=== PATIENT | male | born 1950 | race Caucasian/White ===

== ENCOUNTER 2017-09-02 09:14 | Emergency (ER) | payer OTHER ==
[~2017-09-02 09:14] MED LIST: ASPI81TA28 PO; ATOR-26 PO; CRD2 PO; EZET10TA47 PO; LSN25 PO; METO1TAB66 PO; METR0.754 TOP; OXYC-57 PO; VITATAB11 PO
[2017-09-02 09:18] VITALS: TEMP 36.6; Ht 172.7 cm
[2017-09-02] MEDS ORDERED: ROSU40TA PO (09:39)
[2017-09-02] MEDS ORDERED: LISI-789 PO (09:39)
[2017-09-02] MEDS ORDERED: DOXA-22 PO (09:39)
--- NOTE | 2017-09-02 10:24 | DIAGNOSTIC IMAGING REPORT ---
R KNEE 3 VIEWS, R TIBIA/FIBULA 2 VIEWS ROUTINE HISTORY: 67 years-old Male r knee/calf pain acute right knee pain with recent fall COMPARISON: None available TECHNIQUE: 3 views of the right knee and 2 views of the right tibia and fibula FINDINGS: KNEE: Tricompartmental osteoarthritis is noted, mild within the medial and lateral compartments and moderate within the patellofemoral compartment. There is spurring of the superior patella. No acute fracture or dislocation identified. Chondrocalcinosis. Vascular calcifications are noted. Small joint effusion. TIBIA/FIBULA: No acute fracture or dislocation. Mild degenerative changes about the tibiotalar joint. IMPRESSION: 1. Small joint effusion without acute fracture or dislocation of the right knee, tibia or fibula. 2. Chondrocalcinosis with tricompartmental osteoarthritis, moderate within the patellofemoral joint. 3. Peripheral vascular disease. The above report was generated using voice recognition software. It may contain grammatical, syntax or spelling errors. Electronically signed by: Arthur Mohr M.D. 09/02/2017 10:22 AM Dictated Date/Time: 09/02/2017 10:17 AM
--- NOTE | 2017-09-02 10:27 | DIAGNOSTIC IMAGING REPORT ---
ULTRASOUND R VENOUS DOPP LOWER EXT UNILAT CLINICAL HISTORY: Right lower extremity swelling COMPARISON STUDY: No previous studies for comparison. FINDINGS: Real-time and color flow Doppler imaging were performed. Flow was seen within the femoral, popliteal and calf veins with no intraluminal thrombus demonstrated. The saphenous vein is patent. IMPRESSION: No evidence of right lower extremity DVT Electronically signed by: Romulo Rod M.D. 09/02/2017 10:26 AM Dictated Date/Time: 09/02/2017 10:25 AM
[2017-09-02] MEDS ORDERED: OXYC1TAB3 PO (10:54)
[2017-09-02 11:10] VITALS: BP 121/80; PULSE 70; O2SAT 96
--- NOTE | 2017-09-02 14:54 | EMERGENCY ROOM VISIT NOTE ---
History Report prepared by Eros: Logan Rashid Under the Supervision of: Dr. Jose Rosario D.O. First contact with patient: 09:22 Chief Complaint: LEG PAIN,LEG INJURY Stated Complaint: FELL ON RT LEG/LEG PAIN History of Present Illness The patient is a 67 year old male who presents to the Emergency Room with complaints of right leg pain that began yesterday. At this time, the patient was crossbow hunting in a tree stand for about 4 hours. He was trying to get down out of his tree stand when he tripped over a branch on the ground and fell onto his right knee. He notes that he heard a pop when he fell. He is also having right calf pain. This is causing him to have trouble ambulating. He did not hit his head or his neck. He denies any headache, neck pain, chest pain, shortness of breath, nausea, vomiting, diarrhea, numbness, or weakness, with exception of tingling to his right calf. Source of History: patient Onset: yesterday Position: knee (right) Symptom Intensity: moderate Quality: ache Timing: constant Modifying Factors (Worsening): movement Associated Symptoms: No LOC, No headache, No neck pain, No chest pain, No SOB, No nausea, No vomiting, No abdominal pain, No back pain, No diarrhea, No weakness, No numbness (with the exception of right calf) Review of Systems See HPI for pertinent positives & negatives. A total of 10 systems reviewed and were otherwise negative. Past Medical & Surgical Medical Problems: (1) High cholesterol (2) Hx of abdominal aortic aneurysm (3) Postop carotid endarterectomy surveillance, encounter for Family History No significant family history Social History Smoking Status: Former Smoker Alcohol Use: none Housing Status: lives with family Occupation Status: retired Current/Historical Medications Scheduled Aspirin (Aspirin Ec), 81 MG PO DAILY Doxazosin Mesylate (Doxazosin), 4 MG PO HS Ezetimibe (Zetia), 10 MG PO DAILY Lisinopril (Zestril), 2.5 MG PO BID Metoprolol Succinate (Toprol Xl), 50 MG PO DAILY Rosuvastatin Calcium (Crestor), 40 MG PO DAILY Scheduled PRN Oxycodone Immediate Rel Tab (Roxicodone Ir), 5 MG PO Q6H PRN for Pain Allergies Coded Allergies: Niacin (Verified Adverse Reaction, Mild, FLUSHED FACE, SPLOTCHY, 10/05/14) Physical Exam Vital Signs Date Time Temp Pulse Resp B/P (MAP) Pulse Ox O2 Delivery O2 Flow Rate FiO2 09/02/17 11:10 70 20 121/80 96 09/02/17 09:18 36.6 76 18 123/75 95 Room Air Physical Exam GENERAL: alert, well appearing, well nourished, no distress, non-toxic HEAD: NC/AT EYE EXAM: normal conjunctiva, PERRL and EOM's grossly intact OROPHARYNX: no exudate, no erythema, lips, buccal mucosa, and tongue normal and mucous membranes are moist NECK: supple, no nuchal rigidity, no adenopathy, non-tender LUNGS: Clear to auscultation. Normal chest wall mechanics HEART: no murmurs, S1 normal and S2 normal ABDOMEN: abdomen soft, non-tender, normo-active bowel sounds, no masses, no rebound or guarding. BACK: Back is symmetrical on inspection and there is no deformity, no midline tenderness, no CVA tenderness. SKIN: no rashes and no bruising UPPER EXTREMITIES: upper extremities are grossly normal. LOWER EXTREMITIES: Right calf larger than left. Flexion and extension to the hip , knee, ankle and EHL intact. Gross sensation intact. DP is 2/4. Tenderness on palpation to the right posterior knee/calf. Skin intact. NEURO EXAM: Normal sensorium Medical Decision & Procedures ER Provider Diagnostic Interpretation: Radiology results as stated below per my review and the radiologist's interpretation: R KNEE 3 VIEWS, R TIBIA/FIBULA 2 VIEWS ROUTINE HISTORY: 67 years-old Male r knee/calf pain acute right knee pain with recent fall COMPARISON: None available TECHNIQUE: 3 views of the right knee and 2 views of the right tibia and fibula FINDINGS: KNEE: Tricompartmental osteoarthritis is noted, mild within the medial and lateral compartments and moderate within the patellofemoral compartment. There is spurring of the superior patella. No acute fracture or dislocation identified. Chondrocalcinosis. Vascular calcifications are noted. Small joint effusion. TIBIA/FIBULA: No acute fracture or dislocation. Mild degenerative changes about the tibiotalar joint. IMPRESSION: 1. Small joint effusion without acute fracture or dislocation of the right knee, tibia or fibula. 2. Chondrocalcinosis with tricompartmental osteoarthritis, moderate within the patellofemoral joint. 3. Peripheral vascular disease. The above report was generated using voice recognition software. It may contain grammatical, syntax or spelling errors. Electronically signed by: Arthur Mohr M.D. 09/02/2017 10:22 AM Dictated Date/Time: 09/02/2017 10:17 AM ULTRASOUND R VENOUS DOPP LOWER EXT UNILAT CLINICAL HISTORY: Right lower extremity swelling COMPARISON STUDY: No previous studies for comparison. FINDINGS: Real-time and color flow Doppler imaging were performed. Flow was seen within the femoral, popliteal and calf veins with no intraluminal thrombus demonstrated. The saphenous vein is patent. IMPRESSION: No evidence of right lower extremity DVT Electronically signed by: Romulo Rod M.D. 09/02/2017 10:26 AM Dictated Date/Time: 09/02/2017 10:25 AM ED Course ED COURSE: Vital signs were reviewed and showed hypertension. The patients medical record was reviewed The above diagnostic studies were performed and reviewed. ED treatments and interventions as stated above. 0922: The patient was evaluated in room B6. A complete history and physical examination was performed. 1110: Upon reevaluation, the patient is resting. I discussed my findings with the patient and he understands and agrees with the treatment plan. Based on the patients age, coexisting illnesses, exam and lab findings the decision to treat as an outpatient was made. The patient remained stable while under my care. The patient appeared well at the time of discharge. Medical Decision Differential diagnoses include major intracranial, cervical, spinal, thoracic, abdominal, pelvic and neurologic injury. Fracture, contusion, sprain, strain, laceration, abrasions included as well. Patient is a 67-year-old male who presents to the ER following feeling a pop in his right calf yesterday. Since then he has been having severe Pain. Does have a previous history of DVT. No blood thinners. X-rays of the patient were negative. Duplex shows no clot. Do favor he likely has a tear in his posterior calf musculature which is likely causing the fullness in his posterior upper calf. Achilles is intact. Patient was given crutches and instructed to refrain from weight bearing and follow-up with orthopedics. Discussed with Pt concerning signs and symptoms to watch out for. Pt was instructed to follow up with their PCP and discussed with the patient their option to return to the ED at anytime for persistent or worsening symptoms. The appropriate anticipatory guidance and out-patient management, including indications for return to the emergency department, were explained at length to the patient and understood. [place] Drug Monitoring Program Search Results: patient reviewed within database, no issues identified Medication Reconcilliation Current Medication List: was personally reviewed by me Blood Pressure Screening Patient's blood pressure: Elevated blood pressure Blood pressure disposition: Elevated BP felt to be situational Impression Primary Impression: Right calf pain Scribe Attestation The scribe's documentation has been prepared under my direction and personally reviewed by me in its entirety. I confirm that the note above accurately reflects all work, treatment, procedures, and medical decision making performed by me. Departure Information Dispostion Home / Self-Care Prescriptions Oxycodone Immediate Rel Tab (ROXICODONE IR) 5 Mg Tab 5 MG PO Q6H Y for Pain, #10 TAB Prov: Jose Rosario, DO 09/02/17 Referrals Azam Lozada M.D. Forms HOME CARE DOCUMENTATION FORM, IMPORTANT VISIT INFORMATION Patient Instructions My [facility], ED Knee Pain [facility] Additional Instructions Please follow up with your primary care doctor or if you are a student, [facility] with in the next 24 hours. Any worsening of your symptoms, please return to the ED immediately. This includes any fevers greater than 100.4, worsening pain, chest pain, shortness breath, persistent nausea, vomiting, unable to eat or drink, or any other concerning signs or symptoms from your standpoint. Please take Motrin or Tylenol as needed for pain. Please use crutches and follow-up with orthopedics as listed below within 3-5 days. You were also given a prescription for a narcotic. While taking this medication you should also not drive, operate machinery and or work within 12hrs of taking the medication.
== END 2017-09-02 11:10 | disposition home or self-care (01) ==
LOC: C.EDB 09:16
DX: M79.661 Pain in right lower leg (principal); Y93.89 Activity, other specified; W18.09XA Striking against other object with subsequent fall, initial encounter; E78.00 Pure hypercholesterolemia, unspecified; Z87.891 Personal history of nicotine dependence; Z79.82 Long term (current) use of aspirin; Z79.899 Other long term (current) drug therapy

== ENCOUNTER 2017-11-29 10:45 | Emergency (ER) | payer OTHER ==
[~2017-11-29] VITALS: Ht 172.7 cm; Wt 102.1 kg
[~2017-11-29 10:45] MED LIST changes: -ATOR-26 PO; -CRD2 PO; +DOXA4TAB5 PO; +LISI-789 PO; -LSN25 PO; +METO-452 PO; -METO1TAB66 PO; -METR0.754 TOP; -OXYC-57 PO; +OXYC1TAB3 PO; +ROSU40TA PO; -VITATAB11 PO
[2017-11-29 10:56] VITALS: TEMP 36.7; Ht 172.7 cm; Wt 102.1 kg
[2017-11-29] MEDS ORDERED: MAGIC1 PO (11:18)
[2017-11-29] MEDS ORDERED: MoRPHine SULFATE 4 MG/ML 1 ML CARP\\VIAL IV STA (11:29)
[2017-11-29] MEDS ORDERED: ONDANSETRON INJ 2 MG/ML 2 ML VIAL IV STA (11:29)
[2017-11-29] MEDS ORDERED: SODIUM CHLORIDE 0.9% 500ML 500 ML IV STA (11:29)
--- NOTE | 2017-11-29 11:34 | EMERGENCY ROOM VISIT NOTE ---
History Report prepared by Eros: Edgardo Bryant Under the Supervision of: Dr. Jamilah Arguello M.D. First contact with patient: 11:21 Chief Complaint: FLANK PAIN Stated Complaint: PAIN IN LEFT SIDE, History of Present Illness The patient is a 67 year old male with an abdominal aortic aneurysm and a history of a kidney stone who presents to the Emergency Room with complaints of intermittent left flank pain that started 3 weeks ago. He states that the pain is around the bottom of his rib cage. The patient says that he was dragging a deer 3 weeks ago before the pain came on, but did not fall during that event. He states he had a fall 3 weeks before the pain started. The patient notes that his blood pressure has been going up periodically, and per his , the patient usually has a fairly normal blood pressure. The patient denies any fevers, vomiting, rashes, lower extremity weakness, or hematuria. He notes that his bowel movements have been normal. Source of History: patient, spouse/significant other Onset: 3 weeks ago Position: other (left flank) Quality: other (pain) Timing: intermittent Associated Symptoms: No fevers, No vomiting, No urinary symptoms (hematuria) , No weakness (in lower extremities), No rash Note: Associated symptoms: Elevated blood pressure. Review of Systems See HPI for pertinent positives & negatives. A total of 10 systems reviewed and were otherwise negative. Past Medical & Surgical Medical Problems: (1) High cholesterol (2) Hx of abdominal aortic aneurysm (3) Postop carotid endarterectomy surveillance, encounter for Family History No significant family history Social History Smoking Status: Former Smoker Alcohol Use: none Housing Status: lives with family Occupation Status: retired Current/Historical Medications Scheduled Aspirin (Aspirin Ec), 81 MG PO DAILY Diphenhy/Alum/Mag/Sucralfa (Magic Swizzle - Diphenhy/Alum/Mag/Sucralfa), 15 ML PO BID Doxazosin Mesylate (Doxazosin), 4 MG PO HS Ezetimibe (Zetia), 10 MG PO DAILY Lisinopril (Zestril), 2.5 MG PO BID Metoprolol Succinate (Toprol Xl), 50 MG PO DAILY Rosuvastatin Calcium (Crestor), 40 MG PO DAILY Scheduled PRN Hydrocodone/Acetaminophen 5MG/325MG ([place] 5MG/325MG), 1 TABLET PO Q6 PRN for Pain Allergies Coded Allergies: Niacin (Verified Adverse Reaction, Mild, FLUSHED FACE, SPLOTCHY, 11/29/17) Physical Exam Vital Signs Date Time Temp Pulse Resp B/P (MAP) Pulse Ox O2 Delivery O2 Flow Rate FiO2 11/29/17 14:51 58 18 128/82 94 Room Air 11/29/17 12:58 55 18 127/79 93 Room Air 11/29/17 10:56 36.7 74 20 144/89 94 Room Air Physical Exam Vital signs reviewed. General: Well-appearing 67 year old male, in no significant distress. HEENT: No scleral icterus, PERRLA, neck supple. Atraumatic. Cardiovascular: Regular rate and rhythm, no extra sounds. Pulmonary: Clear to auscultation bilaterally, normal work of breathing. Abdomen: Soft, nontender, nondistended, positive bowel sounds. Musculoskeletal: Mild left CVA tenderness, no peripheral edema. Neurologic: Patient awake alert and oriented x 3, full strength in all 4 extremities. Cranial nerves 2 through 12 grossly intact. Skin: Warm, dry, no rash Medical Decision & Procedures ER Provider Diagnostic Interpretation: CT results as stated below per my review and radiologist interpretation: CT SCAN OF THE ABDOMEN AND PELVIS WITHOUT IV CONTRAST CLINICAL HISTORY: Left flank pain COMPARISON STUDY: No priors. TECHNIQUE: CT scan of the abdomen and pelvis is performed from the lung bases to the proximal femora. Images are reviewed in the axial, sagittal, and coronal planes. IV contrast was not administered for this examination as per the referring clinician. A dose lowering technique was utilized adhering to the principles of ALARA. CT DOSE: 918.37 mGy.cm FINDINGS: Lung bases: The heart is normal in size and without pericardial effusion. The coronary arteries and aortic valve leaflets are densely calcified. The lung bases are clear noting dependent atelectasis. There is a tiny hiatal hernia. Liver: The unenhanced liver is normal in size, contour, and attenuation. There is no intrahepatic biliary ductal dilatation. Gallbladder: Unremarkable. Spleen: Normal in size and attenuation. Pancreas: The unenhanced pancreas is grossly unremarkable. Adrenal glands: Unremarkable. Kidneys: The unenhanced kidneys demonstrate cortical atrophy and are without hydronephrosis. There are no renal calculi identified. There is no evidence of contour deforming renal mass lesion. Abdominal vasculature: There is advanced atherosclerotic calcification of the abdominal aorta. There is a 3.6 x 3.8 cm (AP times transverse) aneurysm of the distal abdominal aorta. There is linear internal calcification within the aneurysm sac which (axial image #247) sepsis dissection is not excluded. Bowel: There is mild colonic diverticulosis without CT evidence of acute diverticulitis. No bowel obstruction is seen. The appendix is well-visualized and normal. Peritoneum: There is no intraperitoneal free air or abdominal ascites. There is a small fat-containing umbilical hernia. Lymphadenopathy: None. Pelvic viscera: The bladder, prostate, and seminal vesicles normal as visualized. There is a small fat-containing right inguinal hernia. Skeletal structures: The skeletal structures are osteopenic. Mild to moderate lumbosacral spondylosis is identified. Degenerative change and partial fusion is seen involving the sacroiliac joints. No lytic or blastic lesions are seen. IMPRESSION: 1. There are no acute infectious or inflammatory findings in the abdomen or pelvis. 2. There is a 3.6 x 3.8 cm infrarenal abdominal aortic aneurysm. 3. There is linear calcification present within the aneurysm sac. This is indeterminant, and although this could represent calcified thrombus the appearance is concerning for dissection. Consider CT angiogram of the abdomen and pelvis for further assessment. 4. Mild colonic diverticulosis without CT evidence of acute diverticulitis. 5. Additional findings as above. Electronically signed by: Kory Hernadez M.D. 11/29/2017 12:30 PM Dictated Date/Time: 11/29/2017 12:[address] ANGIOGRAM OF THE ABDOMEN AND PELVIS WITH IV CONTRAST CLINICAL HISTORY: Left flank pain. Possible aortic dissection. COMPARISON STUDY: Abdomen and pelvis CT 11/29/2017. TECHNIQUE: CT scan of the abdomen and pelvis is performed from the lung bases to the proximal femora. Images are reviewed in the axial, sagittal, and coronal planes. IV contrast was administered for this examination as per the referring clinician. A dose lowering technique was utilized adhering to the principles of ALARA. Maximal intensity projection images are also obtained. CT DOSE: 918.37 mGy.cm FINDINGS: Lung bases: The heart is normal in size and without pericardial effusion. The coronary arteries and aortic valve leaflets are densely calcified. The lung bases are clear noting dependent atelectasis. There is a tiny hiatal hernia. Liver: The unenhanced liver is normal in size, contour, and attenuation. There is no intrahepatic biliary ductal dilatation. Gallbladder: Unremarkable. Spleen: Normal in size and attenuation. Pancreas: The pancreas is grossly unremarkable. Adrenal glands: Unremarkable. Kidneys: The kidneys demonstrate cortical atrophy and are without hydronephrosis. There are no renal calculi identified. There is no evidence of contour deforming renal mass lesion. Abdominal vasculature: There is again noted a 3.9 x 3.5 cm infrarenal abdominal aortic aneurysm. There is a focal intimal flap at the aneurysm and moderate noncalcified plaque identified. Therefore, this is consistent with a focal dissection. This is age-indeterminate. The renal arteries, celiac artery, superior mesenteric, and inferior mesenteric arteries are widely patent. No significant stenosis within the iliac arteries. Moderate atherosclerotic plaque throughout the abdominal vascular system. Bowel: There is mild colonic diverticulosis without CT evidence of acute diverticulitis. No bowel obstruction is seen. The appendix is well-visualized and normal. Peritoneum: There is no intraperitoneal free air or abdominal ascites. There is a small fat-containing umbilical hernia. Lymphadenopathy: None. Pelvic viscera: The bladder, prostate, and seminal vesicles normal as visualized. Skeletal structures: The skeletal structures are osteopenic. Mild to moderate lumbosacral spondylosis is identified. Degenerative change and partial fusion is seen involving the sacroiliac joints. No lytic or blastic lesions are seen. IMPRESSION: 1. There are no acute infectious or inflammatory findings in the abdomen or pelvis. 2. There is a 3.9 x 3.5 cm infrarenal abdominal aortic aneurysm. This demonstrates a focal age-indeterminate dissection. No retroperitoneal hemorrhage identified. 3. Moderate calcified plaque throughout the arterial systems. 4. Mild colonic diverticulosis without CT evidence of acute diverticulitis. 5. Additional findings as above. Electronically signed by: Ollie Ricardo M.D. 11/29/2017 1:56 PM Dictated Date/Time: 11/29/2017 1:35 PM Laboratory Results 11/29/17 11:47 Red Blood Count 5.04, Mean Corpuscular Volume 90.5, Mean Corpuscular Hemoglobin 30.4, Mean Corpuscular Hemoglobin Concent 33.6, Mean Platelet Volume 8.8, Neutrophils (%) (Auto) 58.1, Lymphocytes (%) (Auto) 27.6, Monocytes (%) (Auto) 11.9, Eosinophils (%) (Auto) 2.0, Basophils (%) (Auto) 0.2, Neutrophils # (Auto ) 2.84, Lymphocytes # (Auto) 1.35, Monocytes # (Auto) 0.58, Eosinophils # (Auto ) 0.10, Basophils # (Auto) 0.01 11/29/17 11:47 Test 11/29/17 11:47 11/29/17 12:35 White Blood Count 4.89 K/uL (4.8-10.8) Red Blood Count 5.04 M/uL (4.7-6.1) Hemoglobin 15.3 g/dL (14.0-18.0) Hematocrit 45.6 % (42-52) Mean Corpuscular Volume 90.5 fL (80-100) Mean Corpuscular Hemoglobin 30.4 pg (25-34) Mean Corpuscular Hemoglobin Concent 33.6 g/dl (32-36) Platelet Count 254 K/uL (130-400) Mean Platelet Volume 8.8 fL (7.4-10.4) Neutrophils (%) (Auto) 58.1 % Lymphocytes (%) (Auto) 27.6 % Monocytes (%) (Auto) 11.9 % Eosinophils (%) (Auto) 2.0 % Basophils (%) (Auto) 0.2 % Neutrophils # (Auto) 2.84 K/uL (1.4-6.5) Lymphocytes # (Auto) 1.35 K/uL (1.2-3.4) Monocytes # (Auto) 0.58 K/uL (0.11-0.59) Eosinophils # (Auto) 0.10 K/uL (0-0.5) Basophils # (Auto) 0.01 K/uL (0-0.2) RDW Standard Deviation 42.6 fL (36.4-46.3) RDW Coefficient of Variation 13.0 % (11.5-14.5) Immature Granulocyte % (Auto) 0.2 % Immature Granulocyte # (Auto) 0.01 K/uL (0.00-0.02) Anion Gap 6.0 mmol/L (3-11) Est Creatinine Clear Calc Drug Dose 76.5 ml/min Estimated GFR () 82.2 Estimated GFR (Non- 71.0 BUN/Creatinine Ratio 16.6 (10-20) Calcium Level 8.7 mg/dl (8.5-10.1) Total Bilirubin 0.2 mg/dl (0.2-1) Direct Bilirubin < 0.1 mg/dl (0-0.2) Aspartate Amino Transf (AST/SGOT) 29 U/L (15-37) Alanine Aminotransferase (ALT/SGPT) 51 U/L (12-78) Alkaline Phosphatase 56 U/L (45-117) Total Protein 7.3 gm/dl (6.4-8.2) Albumin 3.9 gm/dl (3.4-5.0) Urine Color YELLOW Urine Appearance CLEAR (CLEAR) Urine pH 5.5 (4.5-7.5) Urine Specific [place] 1.023 (1.000-1.030) Urine Protein NEG (NEG) Urine Glucose (UA) NEG (NEG) Urine Ketones NEG (NEG) Urine Occult Blood NEG (NEG) Urine Nitrite NEG (NEG) Urine Bilirubin NEG (NEG) Urine Urobilinogen NEG (NEG) Urine Leukocyte Esterase NEG (NEG) Laboratory results per my review. Medications Administered Medications (Trade) Dose Ordered Sig/Krystina Route Start Time Stop Time Status Last Admin Dose Admin Sodium Chloride 500 ml @ 999 mls/hr Q31M STAT IV 11/29/17 11:29 11/29/17 11:59 DC 11/29/17 11:49 999 MLS/HR Morphine Sulfate (MoRPHine SULFATE INJ) 4 mg NOW STAT IV 11/29/17 11:29 11/29/17 11:32 DC 11/29/17 11:49 4 MG Ondansetron HCl (Zofran Inj) 4 mg NOW STAT IV 11/29/17 11:29 11/29/17 11:32 DC 11/29/17 11:49 4 MG ED Course 1128: Past medical records reviewed. The patient was evaluated in room C10. A complete history and physical examination was performed. 1129: Ordered Zofran Inj 4 mg IV, Morphine Sulfate Inj 4 mg IV, NSS 500 ml @ 999 mls/hr IV. 1420: I discussed the patient with Dr. Aden - [facility] [place] [facility] surgery - he says that this is not a focal dissection, it is an ulceration of the thrombus. The patient can go home and be seen in 3 months. 1422: Upon reevaluation, the patient appeared to be resting comfortably. I discussed findings with him. He verbalized agreement of the treatment plan. He will be discharged home. Medical Decision Differential diagnosis: Etiologies such as renal colic, appendicitis, diverticulitis, mesenteric ischemia, aortic pathology, infections, inflammatory bowel disease, PUD, biliary pathology, UTI, as well as others were entertained. This patient was evaluated and appeared to be in no significant distress. IV access was obtained and laboratory work was drawn. Patient was placed on the cardiac rn and found to be in a normal sinus rhythm. Physical examination is fairly unrevealing. CT scan of the abdomen and pelvis was performed to rule out renal calculus. This study is concerning for a calcification of the aorta along the AAA. CT angio was recommended and this was performed. There is a concern over an age indeterminate dissection as read by radiology. Dr. Aden of vascular surgery was consulted, he believes this is an intramural thrombus ulceration. He has no recommendations at this time except for regular monitoring. He has requested that the patient be seen within 3 months. The patient follows with vascular surgery through [facility]. He will follow-up as directed. The patient will return to the ER for worsening of symptoms or any medical concerns. He has have expressed an understanding of the plan and agree. Medication Reconcilliation Current Medication List: was personally reviewed by me Blood Pressure Screening Patient's blood pressure: Normal blood pressure Impression Primary Impression: Ulceration of intramural thrombus Additional Impressions: Left flank pain AAA (abdominal aortic aneurysm) Scribe Attestation The scribe's documentation has been prepared under my direction and personally reviewed by me in its entirety. I confirm that the note above accurately reflects all work, treatment, procedures, and medical decision making performed by me. Departure Information Dispostion Home / Self-Care Prescriptions Hydrocodone/Acetaminophen 5MG/325MG ([place] 5MG/325MG) Tab 1 TABLET PO Q6 Y for Pain, #15 TAB Prov: Jamilah Arguello M.D. 11/29/17 Referrals Bia Huertas M.D. (PCP) Patient Instructions My [facility] Additional Instructions Diagnosis: Ulceration of an intramural thrombus, AAA, left flank pain [place] one tablet every 6 hours as needed for pain. Do not drive or take Tylenol with this medication. Follow-up with your vascular surgeon within the next several weeks for reevaluation of this finding. Follow-up with your PCP this week for reevaluation of the left flank pain. Return to the emergency department for worsening of symptoms or any medical concerns. Problem Qualifiers
[2017-11-29 12:18] LABS: BASO % 0.2 %; BASO ABS # 0.01 K/uL (0-0.2); HEMATOCRIT 45.6 % (42-52); HEMOGLOBIN 15.3 g/dL (14.0-18.0); IG# 0.01 K/uL (0.00-0.02); LYMPH % 27.6 %; LYMPH ABS # 1.35 K/uL (1.2-3.4); MEAN CELL VOLUME 90.5 fL (80-100); MEAN CORPUSCULAR HEMOGLOBIN 30.4 pg (25-34); MEAN CORPUSCULAR HGB CONC 33.6 g/dl (32-36); MEAN PLATELET VOLUME 8.8 fL (7.4-10.4); MONO % 11.9 %; MONO ABS # 0.58 K/uL (0.11-0.59); NEUT % 58.1 %; NEUT ABS # 2.84 K/uL (1.4-6.5); PLATELET COUNT 254 K/uL (130-400); RED CELL DISTRIBUTION WIDTH SD 42.6 fL (36.4-46.3); WHITE BLOOD COUNT 4.89 K/uL (4.8-10.8)
--- NOTE | 2017-11-29 12:32 | DIAGNOSTIC IMAGING REPORT ---
CT SCAN OF THE ABDOMEN AND PELVIS WITHOUT IV CONTRAST CLINICAL HISTORY: Left flank pain COMPARISON STUDY: No priors. TECHNIQUE: CT scan of the abdomen and pelvis is performed from the lung bases to the proximal femora. Images are reviewed in the axial, sagittal, and coronal planes. IV contrast was not administered for this examination as per the referring clinician. A dose lowering technique was utilized adhering to the principles of ALARA. CT DOSE: 918.37 mGy.cm FINDINGS: Lung bases: The heart is normal in size and without pericardial effusion. The coronary arteries and aortic valve leaflets are densely calcified. The lung bases are clear noting dependent atelectasis. There is a tiny hiatal hernia. Liver: The unenhanced liver is normal in size, contour, and attenuation. There is no intrahepatic biliary ductal dilatation. Gallbladder: Unremarkable. Spleen: Normal in size and attenuation. Pancreas: The unenhanced pancreas is grossly unremarkable. Adrenal glands: Unremarkable. Kidneys: The unenhanced kidneys demonstrate cortical atrophy and are without hydronephrosis. There are no renal calculi identified. There is no evidence of contour deforming renal mass lesion. Abdominal vasculature: There is advanced atherosclerotic calcification of the abdominal aorta. There is a 3.6 x 3.8 cm (AP times transverse) aneurysm of the distal abdominal aorta. There is linear internal calcification within the aneurysm sac which (axial image #247) sepsis dissection is not excluded. Bowel: There is mild colonic diverticulosis without CT evidence of acute diverticulitis. No bowel obstruction is seen. The appendix is well-visualized and normal. Peritoneum: There is no intraperitoneal free air or abdominal ascites. There is a small fat-containing umbilical hernia. Lymphadenopathy: None. Pelvic viscera: The bladder, prostate, and seminal vesicles normal as visualized. There is a small fat-containing right inguinal hernia. Skeletal structures: The skeletal structures are osteopenic. Mild to moderate lumbosacral spondylosis is identified. Degenerative change and partial fusion is seen involving the sacroiliac joints. No lytic or blastic lesions are seen. IMPRESSION: 1. There are no acute infectious or inflammatory findings in the abdomen or pelvis. 2. There is a 3.6 x 3.8 cm infrarenal abdominal aortic aneurysm. 3. There is linear calcification present within the aneurysm sac. This is indeterminant, and although this could represent calcified thrombus the appearance is concerning for dissection. Consider CT angiogram of the abdomen and pelvis for further assessment. 4. Mild colonic diverticulosis without CT evidence of acute diverticulitis. 5. Additional findings as above. Electronically signed by: Kory Hernadez M.D. 11/29/2017 12:30 PM Dictated Date/Time: 11/29/2017 12:23 PM
[2017-11-29 12:34] LABS: ALBUMIN 3.9 gm/dl (3.4-5.0); AST/SGOT 29 U/L (15-37); BLOOD UREA NITROGEN 18 mg/dl (7-18); CALCIUM 8.7 mg/dl (8.5-10.1); CARBON DIOXIDE 27 mmol/L (21-32); CREATININE 1.07 mg/dl (0.60-1.40); GLUCOSE 89 mg/dl (70-99); POTASSIUM 4.2 mmol/L (3.5-5.1); SODIUM 138 mmol/L (136-145)
[2017-11-29 12:36] LABS: ALKALINE PHOSPHATASE 56 U/L (45-117); ALT/SGPT 51 U/L (12-78); TOTAL PROTEIN 7.3 gm/dl (6.4-8.2)
[2017-11-29] MEDS ORDERED: OPTIRAY 320 IV PRN (13:00)
--- NOTE | 2017-11-29 13:57 | DIAGNOSTIC IMAGING REPORT ---
CT ANGIOGRAM OF THE ABDOMEN AND PELVIS WITH IV CONTRAST CLINICAL HISTORY: Left flank pain. Possible aortic dissection. COMPARISON STUDY: Abdomen and pelvis CT 11/29/2017. TECHNIQUE: CT scan of the abdomen and pelvis is performed from the lung bases to the proximal femora. Images are reviewed in the axial, sagittal, and coronal planes. IV contrast was administered for this examination as per the referring clinician. A dose lowering technique was utilized adhering to the principles of ALARA. Maximal intensity projection images are also obtained. CT DOSE: 918.37 mGy.cm FINDINGS: Lung bases: The heart is normal in size and without pericardial effusion. The coronary arteries and aortic valve leaflets are densely calcified. The lung bases are clear noting dependent atelectasis. There is a tiny hiatal hernia. Liver: The unenhanced liver is normal in size, contour, and attenuation. There is no intrahepatic biliary ductal dilatation. Gallbladder: Unremarkable. Spleen: Normal in size and attenuation. Pancreas: The pancreas is grossly unremarkable. Adrenal glands: Unremarkable. Kidneys: The kidneys demonstrate cortical atrophy and are without hydronephrosis. There are no renal calculi identified. There is no evidence of contour deforming renal mass lesion. Abdominal vasculature: There is again noted a 3.9 x 3.5 cm infrarenal abdominal aortic aneurysm. There is a focal intimal flap at the aneurysm and moderate noncalcified plaque identified. Therefore, this is consistent with a focal dissection. This is age-indeterminate. The renal arteries, celiac artery, superior mesenteric, and inferior mesenteric arteries are widely patent. No significant stenosis within the iliac arteries. Moderate atherosclerotic plaque throughout the abdominal vascular system. Bowel: There is mild colonic diverticulosis without CT evidence of acute diverticulitis. No bowel obstruction is seen. The appendix is well-visualized and normal. Peritoneum: There is no intraperitoneal free air or abdominal ascites. There is a small fat-containing umbilical hernia. Lymphadenopathy: None. Pelvic viscera: The bladder, prostate, and seminal vesicles normal as visualized. Skeletal structures: The skeletal structures are osteopenic. Mild to moderate lumbosacral spondylosis is identified. Degenerative change and partial fusion is seen involving the sacroiliac joints. No lytic or blastic lesions are seen. IMPRESSION: 1. There are no acute infectious or inflammatory findings in the abdomen or pelvis. 2. There is a 3.9 x 3.5 cm infrarenal abdominal aortic aneurysm. This demonstrates a focal age-indeterminate dissection. No retroperitoneal hemorrhage identified. 3. Moderate calcified plaque throughout the arterial systems. 4. Mild colonic diverticulosis without CT evidence of acute diverticulitis. 5. Additional findings as above. Electronically signed by: Ollie Ricardo M.D. 11/29/2017 1:56 PM Dictated Date/Time: 11/29/2017 1:35 PM
[2017-11-29] MEDS ORDERED: HYDR-5688 PO (14:44)
[2017-11-29 14:51] VITALS: BP 128/82; PULSE 58; O2SAT 94
== END 2017-11-29 14:53 | disposition home or self-care (01) ==
LOC: C.EDB 10:48 → C.EDC 14:53
DX: I74.10 Embolism and thrombosis of unspecified parts of aorta (principal); R10.32 Left lower quadrant pain; R10.12 Left upper quadrant pain; I71.4 Abdominal aortic aneurysm, without rupture; Z87.442 Personal history of urinary calculi; E78.5 Hyperlipidemia, unspecified; Z79.82 Long term (current) use of aspirin; Z87.891 Personal history of nicotine dependence